=== PATIENT | male | born 1955 | race Caucasian/White ===

== ENCOUNTER 2017-02-02 06:32 | Day surgery (SDC) | payer OTHER ==
[~2017-02-02] VITALS: Ht 167.6 cm; Wt 74.8 kg
[2017-02-02 08:00] VITALS: BP 139/86; Ht 167.6 cm; Wt 74.8 kg
[2017-02-02] MEDS ORDERED: COLACE100 MG PO (08:06)
[2017-02-02] MEDS ORDERED: ZOCOR10 MG PO (08:07)
[2017-02-02] MEDS ORDERED: BAYER CHEWABLE81 MG PO (08:08)
[2017-02-02] MEDS ORDERED: NORVASC10 MG PO (08:09)
[2017-02-02] MEDS ORDERED: PRINIVIL20 MG PO (08:10)
[2017-02-02] MEDS ORDERED: MILK OF MAGNESI30 ML PO (08:13)
--- NOTE | 2017-02-04 11:49 | OP ---
PATIENT NAME: EDILBERTO CAMEJO MEDICAL RECORD: [id number] :57 LOCATION:D.OPS ADMISSION DATE: SURGEON: CLAY ORELLANA MD DATE OF OPERATION: 02/02/2017 PREOPERATIVE DIAGNOSES: 1. Hepatitis C. 2. Cirrhosis. 3. Symptomatic gallstones. POSTOPERATIVE DIAGNOSES: 1. Hepatitis C. 2. Advanced cirrhosis. 3. Symptomatic gallstones. 4. History of ascites within the abdomen. 5. Incarcerated umbilical hernia. 6. Adhesions to the gallbladder. PROCEDURES: 1. Laparoscopic cholecystectomy. 2. Intraoperative cholangiography without immediate surgeon interpretation. 3. An 18-gauge core needle liver biopsy. SURGEON: Clay Orellana MD. VASCULAR SURGEON: None. BLOOD LOSS: 50 cc. ANESTHESIA: General. COMPLICATIONS: None. The risks, possible complications and alternatives to procedure were explained to the patient. He elects to proceed. The discussions specifically included, but was not limited to, bleeding requiring emergency reoperation, infection, intestinal injury as well as an open procedure. OPERATIVE COURSE: The patient was conveyed to the operating room electively on 02/02/2017. General anesthesia was induced by anesthesia staff. The abdomen was sterilely prepped and draped. An incision was accomplished within the umbilicus. I dissected down to the incarcerated umbilical fat within the umbilical hernia. The incarcerated fat was excised. I sharply cleaned the surrounding connective tissue from around the hernia defect. Stay sutures were placed on the side of the hernia defect. A 12-mm trocar was inserted through the umbilical hernia defect. CO2 insufflation was begun. Once sufficient pneumoperitoneum had been achieved, a 5-mm trocar was inserted through an incision in the epigastrium. Another 5-mm trocar was inserted through an incision in the right upper quadrant. Another 5-mm trocar was inserted far laterally in the right upper quadrant. During insertion of the Veress needle and all trocars, there appeared to have been no injury to the bowels, any intraperitoneal or retroperitoneal structures. Abdominal survey was undertaken. Under laparoscopic guidance, I percutaneously OPERATIVE REPORT [id number] EDILBERTO CAMEJO accessed the right upper quadrant utilizing an 18-gauge core needle liver biopsy device. Cores were obtained over the convexity of the liver. The biopsy sites were made hemostatic with electrocautery. I then advanced a cholangiogram trocar. I punctured the fundus of the gallbladder. I aspirated bile. I then injected dye. Under real time fluoroscopy, cine as well as static images were obtained. They were sent to the radiologist for interpretation. I aspirated bile and removed the cholangiogram trocar. The gallbladder was grasped and retracted cephalad. The infundibulum was grasped and retracted laterally. Adhesions were taken down bluntly. Blunt dissection was begun on the triangle of Calot. One cystic artery and one cystic duct were identified. These were clipped multiply and divided between clips. The gallbladder was then excised from its bed and the liver. It was placed within a bag retrieval device and was withdrawn through the umbilical fascia defect. The 12-mm trocar was placed in the abdomen and reinsufflated. I irrigated and aspirated the right upper quadrant. There was no bleeding even at a low pressure of 8. Holli was added to the gallbladder fossa for additional hemostasis. All the trocars were removed and the abdomen desufflated. The umbilical hernia defect was oversewn with multiple interrupted horizontal mattress 0 Vicryl sutures. The umbilical skin was approximated with interrupted 4-0 Vicryl Rapide sutures. The other skin incisions were closed with interrupted intracuticular 3-0 Vicryls. Benzoin and Steri-Strips were applied. The patient was then extubated and conveyed to post-anesthesia care unit where he was in stable condition. There will be no need for him to follow up with me in the office unless he develops a complication related to this operative procedure. He is going be dismissed back to the group home on Dilaudid. TRANSINT:[id number] Voice Confirmation ID: [id number] DOCUMENT ID: [id number] CLAY ORELLANA MD at 1149 CC: [id number] DICTATION DATE: 02/02/17 1155 [employer]: 02/02/17 1458 [facility] 02/02/17 [place] [id number] [place] [id number]
--- NOTE | 2017-02-04 11:49 | HP ---
PATIENT: EDILBERTO CAMEJO MEDICAL RECORD: [id number] ACCOUNT: [id number] LOCATION:[facility] : 57 ADMISSION DATE: 02/02/17 HISTORY AND PHYSICAL EXAMINATION CHIEF COMPLAINT: Gallstones. HISTORY OF PRESENT ILLNESS: The patient has a history of cirrhosis. He has undergone treatment with Harvoni. He has had a right upper quadrant pain with nausea and vomiting. Ultrasound revealed gallstones. The patient is going to undergo cholecystectomy. The risks, possible complications and alternatives to procedure were explained to the patient. He elects to proceed. HOME MEDICATIONS: Amlodipine, aspirin, docusate, fish oil, lisinopril and simvastatin. PAST MEDICAL AND SURGICAL HISTORY: History of hepatitis C, cirrhosis and hypertension. ALLERGIES: No known drug allergies. SOCIAL HISTORY: Former smoker. REVIEW OF SYSTEMS: Negative for CVA or seizures. Negative for diabetes or thyroid problems. The review of systems is negative other than as is described above. PHYSICAL EXAMINATION: GENERAL: The patient does not appear acutely ill. He does appear chronically ill. VITAL SIGNS: Reviewed. HEAD: External ears appear normal. EYES: Extraocular movements are intact. NECK: Trachea is midline. CHEST: No intercostal retractions. PULMONARY: Nonlabored, no stridor. ABDOMEN: Right upper quadrant tenderness. IMPRESSION: 1. History of hepatitis C. 2. Symptomatic gallstones. 3. Cirrhosis. PLAN: Laparoscopic cholecystectomy, intraoperative cholangiography and liver biopsy. TRANSINT:[id number] Voice Confirmation ID: [id number] DOCUMENT ID: [id number] HISTORY AND PHYSICAL [id number] BASHIREDWIN HEMPHILL MD at 1149 CC: EDWIN ARIZA MD, GERMÁN CRISTOBAL MD and SHELBI DOE [id number] DICTATION DATE: 02/02/17 0956 [employer]: 02/02/17 1038 [facility] 02/02/17 [place] [id number] [place] [id number]
== END 2017-02-02 15:15 ==
LOC: D.OPS 06:32
DX: K74.60 Unspecified cirrhosis of liver (principal); B19.20 Unspecified viral hepatitis C without hepatic coma; I10 Essential (primary) hypertension; Z01.812 Encounter for preprocedural laboratory examination